=== PATIENT | male | born 1955 | race Caucasian/White ===

== ENCOUNTER 2019-11-14 17:25 | Emergency (ER) | payer MEDICARE, OTHER ==
[~2019-11-14] VITALS: Ht 182.9 cm; Wt 79.5 kg
[2019-11-14] MEDS ORDERED: IV NORMAL SALINE 1000ML BAG 1,000 ML IV SCH (18:11)
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
[2019-11-14 18:49] LABS: BASO # 0.1 x10^3/uL (0.0-0.2); BASO % 1 % (0-3); EOS # 0.1 x10^3/uL (0.0-0.7); EOS % 1 % (0-3); HEMATOCRIT 32.3 % (39.0-53.0); LYMPH # 2.7 x10^3/uL (1.0-4.8); LYMPH % 24 % (24-48); MEAN CORPUSCULAR HEMOGLOBIN 31 pg (25-35); MEAN CORPUSCULAR HGB CONC 34 g/dL (31-37); MEAN CORPUSCULAR VOLUME 91 fL (79-100); MONO # 0.8 x10^3/uL (0.0-1.1); MONO % 7 % (0-9); NEUT # 7.4 x10^3/uL (1.8-7.7); NEUT % 67 % (31-73); PLATELET COUNT 350 x10^3/uL (140-400); RED BLOOD COUNT 3.57 x10^6/uL (4.30-5.70); RED CELL DISTRIBUTION WIDTH 15.7 % (11.5-14.5)
[2019-11-14 19:02] LABS: CALCIUM 8.4 mg/dL (8.5-10.1); CREATININE 1.2 mg/dL (0.7-1.3); GFR 60.8; POTASSIUM 4.6 mmol/L (3.5-5.1)
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
[2019-11-14 19:07] LABS: ALBUMIN 2.4 g/dL (3.4-5.0); ALBUMIN/GLOBULIN RATIO 0.6 (1.0-1.7); TOTAL BILIRUBIN 0.3 mg/dL (0.2-1.0); TOTAL PROTEIN 6.5 g/dL (6.4-8.2)
[2019-11-14 19:18] LABS: BILIRUBIN,URINE NEGATIVE (NEG); CLARITY,URINE CLOUDY; COLOR,URINE YELLOW; NITRITE,URINE NEGATIVE (NEG); PH,URINE 5.5; PROTEIN,URINE 100 mg/dL (NEG-TRACE); UROBILINOGEN,URINE 0.2 mg/dL (0.2 mg/dL)
[2019-11-14 19:27] LABS: HYALINE CASTS, URINE FEW /HPF
[2019-11-14 19:28] LABS: AMORPHOUS SEDIMENT,UR PRESENT /HPF; WBC,URINE 20-40 /HPF (0-4)
[2019-11-14 19:29] LABS: BACTERIA,URINE 0 /HPF (0-FEW)
[2019-11-14 19:32] LABS: INFLUENZA A PATIENT NEGATIVE (NEGATIVE); INFLUENZA B PATIENT NEGATIVE (NEGATIVE)
[2019-11-14 21:20] VITALS: BP 116/70
--- NOTE | 2019-11-15 05:49 | EKG ---
[facility] [address] [place] [address] Test Date: 2019-11-14 Test Time: 18:20:46 Pat Name: CHELSEY SEBASTIAN Department: Room: Gender: M [place]: : 1955 Requested By: DEREK KOLB Order Number: [id number] Reading MD: Measurements Intervals [place] Rate: 61 P: -49 WI: 156 QRS: 26 QRSD: 140 T: -4 QT: 512 QTc: 522 Interpretive Statements SINUS RHYTHM NON SPECIFIC INTRAVENTRICULAR BLOCK QRS(T) CONTOUR ABNORMALITY CONSISTENT WITH INFERIOR INFARCT AGE UNDETERMINED ABNORMAL ECG No previous ECG available for comparison
== END 2019-11-14 21:22 ==
LOC: ER 17:25
DX: T83.511A Infection and inflammatory reaction due to indwelling urethral catheter, initial encounter (principal); N39.0 Urinary tract infection, site not specified; I12.9 Hypertensive chronic kidney disease with stage 1 through stage 4 chronic kidney disease, or unspecified chronic kidney disease; N18.9 Chronic kidney disease, unspecified; Z86.73 Personal history of transient ischemic attack (TIA), and cerebral infarction without residual deficits; Z98.890 Other specified postprocedural states; Z87.891 Personal history of nicotine dependence
CPT/HCPCS: 36415; 51702; 71045; 80053; 81001; 83605; 85025; 87040; 87086; 87804; 93005; 99285; J7030